=== PATIENT | male | born 1935 | race Caucasian/White ===

== ENCOUNTER 2022-03-05 18:34 | Emergency (ER) | payer MEDICARE, OTHER ==
[2022-03-05] MEDS ORDERED: Boostrix 0.5 ML (Tdap) VIAL (>/=7 yrs of age) ONE (19:06)
[2022-03-05] MEDS ORDERED: Bacitracin 1 PK ONE (19:07)
== END 2022-03-05 19:36 | disposition home or self-care (01) ==
LOC: NAV ERS 18:34
DX: S51.811A Laceration without foreign body of right forearm, initial encounter (principal); W31.2XXA Contact with powered woodworking and forming machines, initial encounter; F17.210 Nicotine dependence, cigarettes, uncomplicated; Z23 Encounter for immunization
CPT/HCPCS: 90471; 90715